=== PATIENT | male | born 1960 | race Caucasian/White ===

== ENCOUNTER → 2016-08-25 | Outpatient (CLI) | payer OTHER ==
[~2016-08-25] MED LIST: HYDR-3702 PO; TAMS-8 PO
[2016-08-25 10:57] LABS: ANION GAP 20.4 MEQ/L (3-15)
== END ==
LOC: LAB 09:54
PROVIDERS: ATTEND Family Medicine
DX: E11.65 Type 2 diabetes mellitus with hyperglycemia (principal)
CPT/HCPCS: 36415; 80048; 83036